=== PATIENT | male | born 1950 | race Caucasian/White ===

== ENCOUNTER → 2025-04-12 | Outpatient (CLI) | payer MEDICARE, OTHER ==
--- NOTE | 2025-04-12 17:47 | NM ---
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 After the administration of 4.37 mCi I-123 Ioflupane DaTscan. Images obtained 3 hours p ost injection. SPECT images of the brain were acquired with axial and coronal reconstructions. FINDINGS: The DaTSCAN demonstrates significantly reduced uptake of tracer to the right striatum and possibly a minor reduction to the left. 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 [facility], , 04/12/2025 5:45 PM
== END | disposition home or self-care (01) ==
LOC: RADNMMAIN 10:58
PROVIDERS: ATTEND Family Medicine
DX: G25.0 Essential tremor (principal)
CPT/HCPCS: 78803; A9584